=== PATIENT | male | born 1950 | race Hispanic/Latino ===

== ENCOUNTER 2019-04-11 16:54 | Emergency (ER) | payer OTHER ==
[~2019-04-11] VITALS: Ht 172.7 cm; Wt 83.0 kg
[~2019-04-11 16:54] MED LIST: ALLOPURINOL100 MG PO; ATORVASTATIN CA10 MG PO; BENADRYL25 M1 PO; CLARITIN-D 241 EACH PO; LOSARTAN POTASS50 MG PO; PRILOSEC OTC20 MG PO
--- OUTSIDE RECORDS SUMMARY | 2019-04-11 16:57 | XMS REPORT ---
Author [facility] [place] Address Unknown Phone Unavailable Care Team Providers Care Backend Python Developer Name Role Phone HELEN NYE Unavailable Unavailable Payers Payer Name Policy Type Policy Number Effective Date Expiration Date Problems This patient has no known problems. Allergies, Adverse Reactions, Alerts Allergy Name Allergy Type Status Severity Reaction(s) Onset Date Inactive Date Treating Clinician Comments No Known Allergies DA Active U 2016-05-07 00:00:00 Medications This patient has no known medications. Results Test Description Test Time Test Comments Text Results Atomic Results Result Comments Stress Test - Treadmill ONLY [place] [address] Patient Name : YUE LONG MR #: [id number] : 1950 Age/Sex: 67/M Adm Physician : HELEN NYE MD Admit Date : 07/29/17 Location : [facility] Room/Bed : [place] [address] REPORT: Cardiology Report DATE OF STUDY: July 31, 2017 LEXISCAN NUCLEAR STRESS TEST INDICATIONS: Chest pain. DESCRIPTION OF PROCEDURE: After informed consent, patient was brought to the stress lab. He was given 0.4 mg Lexiscan over 10 seconds. Patient was given 29.2 millicuries of technetium 99 Myoview, and myocardial perfusion SPECT images obtained in horizontal long axis, short axis, vertical long axis. Prior to that, patient was given 10.8 millicuries of technetium 99 Myoview and myocardial perfusion SPECT images were obtained in the horizontal long and short axis and vertical long axis. Gating images were also obtained. Patient tolerated the procedure without any complications reported. Baseline EKG shows sinus rhythm 62 beats per minute, normal axis, normal intervals, no acute ST-T changes. PARAMETERS 1. Resting heart rate 66 beats per minute. 2. Maximum heart rate is 71 beats per minute. 3. Resting blood pressure 132/75 mmHg. 4. Maximum blood pressure 140/63 mmHg. REASON FOR TERMINATION: Endpoint attained. INTERPRETATION 1. Negative chest pain. 2. Negative for arrhythmias. 3. Blood pressure response consistent with Lexiscan. 4. No significant ST-T changes seen during Lexiscan infusion compared to baseline. 5. Analysis of SPECT images reveals uniform radioisotope uptake in all segments of myocardium without any significant perfusion defects. CONCLUSION 1. No evidence of significant ischemia or infarction. 2. No wall motion abnormality. 3. Overall ejection fraction is 70%. Job#: [id number] [facility]ONE Signature Date Dictated By: DEREJE RODRÍGUEZ MD Transcribed By: EDS on 08/08/17 <Electronically signed by DEREJE RODRÍGUEZ MD><<Signature on File>>08/09/17 1147 COPY TO: CHEST 2 VIEWS [place] [address] Patient Name: YUE LONG MR #: [id number] : 1950 Age/Sex: 67/M Req #: [id number] [facility] Physician: Ordered by: CLAUDIA KHAN MD Report #: [id number] Location: ER Room/Bed: Procedure: [id number] DX/CHEST 2 VIEWS Exam Date: 07/29/17 Exam Time: 1635 REPORT STATUS: Signed EXAMINATION: PA and lateral views of the chest. COMPARISON: None CLINICAL HISTORY: Chest pain DISCUSSION: Lines/tubes: None. Lungs: The lungs are well inflated and clear. There is no evidence of pneumonia or pulmonary edema. Pleura: There is no pleural effusion or pneumothorax. Heart and mediastinum: The cardiomediastinal silhouette is normal. Bones and soft tissues: No acute bony abnormalities. IMPRESSION: No acute cardiopulmonary abnormalities. Signed by: Dr. Nicole Lord M.D. on 07/29/2017 5:05 PM Dictated By: NICOLE LORD MD 04 Transcribed By: JORDYN on 07/29/171704 COPY TO: CLAUDIA KHAN MD
[2019-04-11] MEDS ORDERED: TRAMADOL HCL 50 MG TAB PO ONE (17:15)
--- NOTE | 2019-04-11 17:44 | Diagnostic Imaging Report ---
Exam: Left knee 3 views History: Pain Comparison: None. Findings: No fracture or malalignment. Joint spaces preserved. Patellar tendon enthesophyte. Impression: No acute osseous abnormality Signed by: Dr. Lupillo Turner M.D. on 04/11/2019 5:40 PM
== END 2019-04-11 18:21 | disposition home or self-care (01) ==
LOC: ER 16:54
DX: M25.562 Pain in left knee (principal); I10 Essential (primary) hypertension; E78.5 Hyperlipidemia, unspecified; M10.9 Gout, unspecified
CPT/HCPCS: 99283

== ENCOUNTER → 2023-01-24 | Outpatient (CLI) | payer OTHER | LOC: US 11:10 | PROVIDERS: ATTEND Internal Medicine | DX: R10.9 Unspecified abdominal pain (principal) | CPT/HCPCS: 76770 ==

== ENCOUNTER → 2023-02-10 | Outpatient (CLI) | payer MEDICARE, OTHER | LOC: DX 11:17 | PROVIDERS: ATTEND Internal Medicine | DX: R07.89 Other chest pain (principal); M85.88 Other specified disorders of bone density and structure, other site | CPT/HCPCS: 71250; 77080 ==

== ENCOUNTER 2023-03-18 19:25 | Emergency (ER) | payer MEDICARE ==
[~2023-03-18] VITALS: Ht 172.7 cm; Wt 82.6 kg
[2023-03-18] MEDS ORDERED: SODIUM CHLORIDE 0.9% 1000ML 1,000 ML IV SCH (20:15)
[2023-03-18] MEDS ORDERED: SODIUM CHLORIDE FLUSH 10 ML SYR IV PRN (20:15)
[2023-03-18 20:22] LABS: BASOPHILS % 0.6 % (0.0-1.0); EOSINOPHILS # (AUTO) 0.1 (0.0-0.4); EOSINOPHILS % 1.4 % (0.0-6.0); HEMOGLOBIN 13.1 g/dL (14.0-18.0); LYMPHOCYTES # (AUTO) 2.4 (1.0-3.2); LYMPHOCYTES % 34.6 % (18.0-39.1); MEAN CORPUSCULAR HEMOGLOBIN 33.6 pg (28-32); MEAN CORPUSCULAR HGB CONC 33.6 g/dL (31-35); MONOCYTES # (AUTO) 0.6 (0.2-0.8); MONOCYTES % 8.8 % (4.4-11.3); NEUTROPHILS # (AUTO) 3.8 (2.1-6.9); NEUTROPHILS % 54.5 % (38.7-80.0); PLATELET COUNT 162 x10e3/uL (140-360)
[2023-03-18 20:26] LABS: CLARITY,URINE CLEAR (CLEAR); COLOR,URINE YELLOW (YELLOW); KETONES,URINE NEGATIVE (NEGATIVE); LEUKOCYTE ESTERASE ,URINE NEGATIVE (NEGATIVE); NITRITE,URINE NEGATIVE (NEGATIVE); PROTEIN,URINE DIPSTICK NEGATIVE (NEGATIVE)
[2023-03-18 20:27] LABS: URINE UROBILINOGEN 0.2 mg/dL (0.2 - 1)
[2023-03-18 20:27] LABS: INR 0.9; PROTHROMBIN TIME 12.6 seconds (11.9-14.5)
[2023-03-18 20:28] LABS: PARTIAL THROMBOPLASTIN TIME 28.9 seconds (23.8-35.5)
[2023-03-18 20:36] LABS: ALBUMIN/GLOBULIN RATIO 1.3 (0.8-2.0); ANION GAP 12.5 mmol/L (8-16); CALCIUM 9.3 mg/dL (8.4-10.2); CREATININE, SERUM 1.85 mg/dL (0.72-1.25); POTASSIUM 4.5 mmol/L (3.5-5.1)
[2023-03-18 20:43] LABS: BACTERIA,URINE FEW /HPF
[2023-03-18 20:44] LABS: MUCUS,URINE FEW (RARE)
[2023-03-18 22:49] VITALS: BP 144/67; PULSE 72; RESP 17; TEMP 98.4; O2SAT 99
== END 2023-03-18 22:50 | disposition home or self-care (01) ==
LOC: ER 19:35
DX: R50.9 Fever, unspecified (principal); I12.9 Hypertensive chronic kidney disease with stage 1 through stage 4 chronic kidney disease, or unspecified chronic kidney disease; N18.9 Chronic kidney disease, unspecified; K57.90 Diverticulosis of intestine, part unspecified, without perforation or abscess without bleeding; M54.50 Low back pain, unspecified; E78.5 Hyperlipidemia, unspecified; M10.9 Gout, unspecified
CPT/HCPCS: 36415; 74176; 80053; 81001; 83690; 85025; 85610; 85730; 99284; J7030